=== PATIENT | male | born 1945 | race Caucasian/White ===

== ENCOUNTER → 2018-01-22 | Outpatient (CLI) | payer OTHER ==
[~2018-01-22] MED LIST: ASPI81CH PO; ATOR20 PO; LEVSOD75 PO; LORPSEER12 PO; Pepcid20 MG PO; VERA120 PO
== END | disposition home or self-care (01) ==
LOC: LAB SHORT 13:55 → PLD 13:55
DX: C44.310 Basal cell carcinoma of skin of unspecified parts of face (principal)
CPT/HCPCS: 88305

== ENCOUNTER → 2020-07-01 | Outpatient (CLI) | payer OTHER | END | disposition home or self-care (01) | LOC: PLD 14:52 → LAB SHORT 14:52 | DX: R23.8 Other skin changes (principal) | CPT/HCPCS: 88305 ==

== ENCOUNTER → 2021-05-17 | Outpatient (CLI) | payer OTHER | END | disposition home or self-care (01) | LOC: LAB SHORT 07:44 | DX: L57.0 Actinic keratosis (principal) | CPT/HCPCS: 88305 ==